=== PATIENT | female | born 1970 | race Hispanic/Latino ===

== ENCOUNTER 2021-09-03 22:49 | Emergency (ER) | payer MEDICARE ==
--- NOTE | 2021-09-03 23:34 | Emergency Department Report ---
ED Fall HPI - General Chief Complaint: Fall Stated Complaint: FALL/DIZZINESS/LEFT SHOULDER PAIN Time Seen by Provider: 09/03/21 23:30 Source: patient, EMS Mode of arrival: Stretcher - History of Present Illness Initial Comments: Patient is 50 years old female with history of Parkinson disease. Patient brought to the emergency room via EMS from a local [facility] for evaluation of a fall. Patient stated that she fell out of bed. She stated that she tried to grab something and then fell on the left side. Patient is complaining of headache, neck pain and left shoulder pain and left ankle pain. She denied any loss of consciousness. No focal weakness numbness or tingling sensation. MD Complaint: fall -: Sudden, This evening Fall From: out of bed When Fall Occurred: [address] Fall Occurred: [facility] Loss of Consciousness: none Prolonged Down Time?: no Symptoms Prior to Fall: none Location: head, face, neck Location - Extremities: Left: Shoulder, Ankle - Related Data Allergies Allergy/AdvReac Type Severity Reaction Status Date / Time No Known Allergies Allergy Unverified 09/03/21 23:22 ED Review of Systems ROS: Stated complaint: FALL/DIZZINESS/LEFT SHOULDER PAIN Other details as noted in HPI Comment: All other systems reviewed and negative Constitutional: denies: chills, fever Respiratory: denies: cough, shortness of breath, SOB with exertion Cardiovascular: denies: chest pain, palpitations Gastrointestinal: denies: abdominal pain, nausea, vomiting, diarrhea, constipation Musculoskeletal: denies: back pain Neurological: headache. denies: weakness, numbness, paresthesias, confusion ED Past Medical Hx - Past Medical History Previous Medical History?: Yes Additional medical history: Parkinsons Disease - Surgical History Past Surgical History?: Yes Additional Surgical History: Neck and back - Social History Smoking Status: Never Smoker Substance Use Type: None ED Physical Exam - General Limitations: Physical Limitation General appearance: alert, in no apparent distress - Head Head exam: Present: atraumatic, normocephalic, normal inspection - Eye Eye exam: Present: normal appearance - ENT ENT exam: Present: normal exam - Neck Neck exam: Present: normal inspection, full ROM. Absent: tenderness, meningismus - Respiratory Respiratory exam: Present: normal lung sounds bilaterally - Cardiovascular Cardiovascular Exam: Present: regular rate, normal rhythm, normal heart sounds - GI/Abdominal GI/Abdominal exam: Present: soft, normal bowel sounds. Absent: distended, tenderness, guarding, rebound, rigid - Extremities Exam Extremities exam: Present: normal inspection - Back Exam Back exam: Present: normal inspection, full ROM. Absent: CVA tenderness (R), CVA tenderness (L) - Neurological Exam Neurological exam: Present: alert, oriented X3, CN II-XII intact - Psychiatric Psychiatric exam: Present: normal mood - Skin Skin exam: Present: warm, intact, normal color ED Course Vital Signs 09/03/21 09/03/21 09/03/21 22:53 23:35 23:45 Temperature 98 F Pulse Rate 86 74 79 Respiratory 18 17 17 Rate Blood Pressure 105/70 93/62 O2 Sat by Pulse 98 94 96 Oximetry 09/03/21 09/04/21 09/04/21 23:57 00:01 00:25 Temperature Pulse Rate 74 73 80 Respiratory 15 16 12 Rate Blood Pressure 92/66 92/66 O2 Sat by Pulse 97 98 96 Oximetry 09/04/21 09/04/21 09/04/21 00:31 00:46 01:00 Temperature Pulse Rate 76 73 73 Respiratory 11 L 14 13 Rate Blood Pressure O2 Sat by Pulse 97 96 96 Oximetry 09/04/21 01:16 Temperature Pulse Rate 69 Respiratory 14 Rate Blood Pressure O2 Sat by Pulse 97 Oximetry ED Medical Decision Making - Radiology Data Radiology results: report reviewed - Medical Decision Making Patient is 50 years old female with history of Parkinson disease. Patient brought to the emergency room via EMS from a local [facility] for evaluation of a fall. Patient stated that she fell out of bed. She stated that she tried to grab something and then fell on the left side. Patient is complaining of headache, neck pain and left shoulder pain and left ankle pain. She denied any loss of consciousness. No focal weakness numbness or tingling sensation. Patient remained stable in the ER with a stable vital sign. CT brain, CT facial bone, CT cervical neck, left shoulder x-ray and left foot showed no acute abnormalities. Patient advised to follow-up with her primary care physician in the next 2 to 3 days and to return to the ER if she develop any new symptoms. Critical care attestation.: If time is entered above; I have spent that time in minutes in the direct care of this critically ill patient, excluding procedure time. ED Disposition Clinical Impression: Fall, Head injury, Contusion of left shoulder Disposition: 03 SNF FACILITY Is pt being admited?: No Condition: Stable Instructions: Contusion, [id number], Fall Prevention in Hospitals, Adult, Head Injury, Adult Referrals: PRIMARY CARE, [Referring] - 3-5 Days
--- NOTE | 2021-09-04 00:52 | Cat Scan Report ---
CT HEAD WITHOUT CONTRAST INDICATION / CLINICAL INFORMATION: head injury. TECHNIQUE: All CT scans at this location are performed using CT dose reduction for ALARA by means of automated exposure control. COMPARISON: None available. FINDINGS: BRAIN PARENCHYMA: No acute intracranial hemorrhage. No evidence of recent infarct. No mass effect or midline shift. VENTRICULAR SYSTEM/EXTRA-AXIAL SPACES: Ventricles are normal for age. No extra-axial fluid collection . ORBITS: Normal as visualized. SKELETAL SYSTEM/SOFT TISSUES: Normal bones and soft tissues. PARANASAL SINUSES/MASTOID AIR CELLS: No significant abnormality. ADDITIONAL FINDINGS: None. IMPRESSION: 1. No acute intracranial abnormality. Signer Name: Andre Hilario MD Signed: 09/04/2021 12:48 AM Workstation Name: [id number]
--- NOTE | 2021-09-04 00:55 | Cat Scan Report ---
CT cervical spine wo con INDICATION: NECK INJURY. TECHNIQUE: Axial CT images of the cervical spine were obtained. Sagittal and coronal reformatted images were pro duced. All CT scans at this location are performed using CT dose reduction for ALARA by means of auto mated exposure control. COMPARISON: None available. FINDINGS: ALIGNMENT: There is mild dextroscoliosis. No acute misalignment. VERTEBRAE: No fracture. Vertebral body heights are preserved. C1 and C2 are congruent. SPONDYLOSIS: Multilevel mild spondylosis is seen with expected appearance of anterior and interbody f usion of C5-C6. SOFT TISSUES: No significant soft tissue abnormality. ADDITIONAL FINDINGS: No significant additional findings. IMPRESSION: 1. No acute abnormality of the cervical spine. 2. Additional findings as above. Signer Name: Andre Hilario MD Signed: 09/04/2021 12:50 AM Workstation Name: [id number]
--- NOTE | 2021-09-04 00:56 | Cat Scan Report ---
CT MAXILLOFACIAL WITHOUT CONTRAST INDICATION: Facial trauma after fall. TECHNIQUE: Axial, coronal and sagittal noncontrast CT imaging was performed through the face. All CT scans at health system location are performed using CT dose reduction for ALARA by means of automated exposure control. COMPARISON: None available. FINDINGS: FACIAL BONES: No fracture or other significant abnormality. PARANASAL SINUSES: No significant abnormality. ORBITS: No significant abnormality. VISUALIZED INTRACRANIAL STRUCTURES: No significant abnormality. ADDITIONAL FINDINGS: None. IMPRESSION: 1. No significant abnormality of the face. Signer Name: Andre Hilario MD Signed: 09/04/2021 12:52 AM Workstation Name: [id number]
--- NOTE | 2021-09-04 01:04 | XRay Report ---
LEFT SHOULDER 4 VIEWS INDICATION / CLINICAL INFORMATION: Injury of left shoulder. COMPARISON: None available. FINDINGS: BONES and JOINT(S): No acute fracture or subluxation. There is moderate glenohumeral degenerative art hrosis. The AC joint is maintained. SOFT TISSUES: No significant abnormality. ADDITIONAL FINDINGS: None. IMPRESSION: 1. No acute findings. 2. Moderate degenerative changes of the left shoulder. Signer Name: Andre Hilario MD Signed: 09/04/2021 12:59 AM Workstation Name: [id number]
--- NOTE | 2021-09-04 01:05 | XRay Report ---
LEFT ANKLE 3 VIEWS INDICATION / CLINICAL INFORMATION: Left ankle injury after fall out of bed. COMPARISON: None available. FINDINGS: BONES and JOINT(S): No acute fracture or subluxation. No significant arthritis. SOFT TISSUES: No significant abnormality. ADDITIONAL FINDINGS: None. IMPRESSION: 1. No acute findings. Signer Name: Andre Hilario MD Signed: 09/04/2021 1:01 AM Workstation Name: [id number]
[2021-09-04 02:37] VITALS: BP 94/62
== END 2021-09-04 12:25 ==
LOC: ED 22:49
DX: S40.012A Contusion of left shoulder, initial encounter (principal); S09.90XA Unspecified injury of head, initial encounter; W06.XXXA Fall from bed, initial encounter; Y93.89 Activity, other specified; Y92.89 Other specified places as the place of occurrence of the external cause; Y99.8 Other external cause status
CPT/HCPCS: 70450; 70486; 72125; 99284